=== PATIENT | male | born 1960 | race African-American/Black ===

== ENCOUNTER 2019-04-18 05:10 | Day surgery (SDC) | payer OTHER ==
[~2019-04-18] VITALS: Ht 180.3 cm; Wt 105.2 kg
[2019-04-18 05:51] LABS: HEMATOCRIT 43.3 % (42.0-54.0); HEMOGLOBIN 14.7 g/dL (13.5-17.5); MCH 29.5 pg (26.0-34.0); MCHC 33.9 g/dL (31.0-37.0); MCV 86.8 fL (80.0-100.0); MEAN PLATELET VOLUME 9.1 fL (7.4-10.4); RBC 4.99 10x6/uL (4.20-6.10); RDW 13.7 % (11.5-14.5); WBC 5.5 10x3/uL (4.8-10.8)
[2019-04-18 06:09] LABS: CALCIUM 8.7 mg/dL (8.5-10.1); CARBON DIOXIDE 25.5 mmol/L (21.0-32.0); CREATININE - SERUM 1.3 mg/dL (0.6-1.3); POTASSIUM - SERUM 3.5 mmol/L (3.5-5.1)
[2019-04-18] MEDS ORDERED: OMEPRAZOLE20 M1 PO (07:00)
[2019-04-18] MEDS ORDERED: ANALGESIC CREME85 GM TOPICAL (07:01)
[2019-04-18] MEDS ORDERED: ACETAMINOPHEN500 M1 PO (07:02)
[2019-04-18] MEDS ORDERED: LISINOPRIL40 MG PO (07:03)
[2019-04-18] MEDS ORDERED: NAPROSYN500 MG PO (07:03)
[2019-04-18] MEDS ORDERED: GLUCOPHAGE500 MG PO (07:04)
[2019-04-18] MEDS ORDERED: NORVASC10 MG PO (07:05)
--- NOTE | 2019-04-18 07:27 | NUR ---
According to the assessment the patient does not require a 1:1 observation, suicide resources are provided to the patient.
[2019-04-18 07:37] VITALS: BP 141/78; Ht 180.3 cm; Wt 105.2 kg
--- NOTE | 2019-04-18 07:49 | NUR ---
0802 REQUEST FOR BEHAVIORAL HEALTH CONSULT CALLED IN TO JAREN DUMONT, NURSING [place] CLERK.
--- NOTE | 2019-04-18 13:13 | NUR ---
1150 ALL DC CRITERIA MET. IV REMOVED WITH CATHALON INTACT. DRESSING APPLIED. ALL DC INSTRUCTIONS AND PRESCRIPTION GIVEN TO GUARDS. TAKEN DOWN VIA WC AND DC'D TO ADC. NO S/S OF ACUTE DISTRESS NOTED.
--- NOTE | 2019-05-01 14:45 | OP ---
PATIENT NAME: JAMAL BRITTON MEDICAL RECORD: [id number] :60 LOCATION:D.OPS ADMISSION DATE: SURGEON: LESLY CALDERÓN MD DATE OF OPERATION: 04/18/2019 PREOPERATIVE DIAGNOSIS: Symptomatic posterior scalp lipoma. POSTOPERATIVE DIAGNOSIS: Symptomatic posterior scalp lipoma. PROCEDURE: Excision of posterior scalp lipoma, symptomatic. SURGEON: Lesly Calderón MD MANAGER ICU: None. BLOOD LOSS: Minimal. ANESTHESIA: General. COMPLICATIONS: None. The risks, possible complications and alternatives to the procedure were explained to the patient. He elects to proceed. The discussion specifically included, but was not limited to, bleeding requiring emergency reoperation, infection, nerve injury as well as possible regrowth of the lipoma. In the holding area, the lipoma was marked. The patient identified that there were no other operative procedures which we had discussed today. OPERATIVE COURSE: The patient underwent general anesthesia. He was positioned prone. The back of the head was sterilely prepped and draped. A transverse incision was accomplished. I dissected down to lipomatous tissue. Utilizing finger dissection most of the lipomatous tissue was removed. Additional lipomatous tissue was removed in a piecemeal fashion. I excised some of the surrounding connective tissue in order to prevent recurrence of the lipoma. Meticulous hemostasis was achieved with electrocautery and then with Judy. The skin was closed in 2 layers. The subdermis was approximated with interrupted 3-0 Vicryls. The skin was approximated with multiple interrupted horizontal mattress 2-0 Vicryls. A sterile dressing was applied. The patient was then extubated and conveyed to post-anesthesia care unit where he was in stable condition. He will be dismissed back to the halfway on a narcotic analgesic. I can see him out at the halfway during a GI clinic in 2-3 weeks to remove the sutures. TRANSINT:[id number] Voice Confirmation ID: [id number] DOCUMENT ID: [id number] OPERATIVE REPORT [id number] TOBI,EMLESLY LIMON MD at 1445 CC: RUPERTO PRATHER MD [id number] DICTATION DATE: 04/30/19 1055 PRIMARY CLINICIAN: 04/30/19 1221 [facility] 04/18/19 [id number] [place] [address]
== END 2019-04-18 11:50 | disposition home or self-care (01) ==
LOC: D.OPS 05:10
PROVIDERS: Anesthesiology; ATTEND Surgery
DX: D17.0 Benign lipomatous neoplasm of skin and subcutaneous tissue of head, face and neck (principal); E11.9 Type 2 diabetes mellitus without complications